=== PATIENT | female | born 1995 | race Two or more races ===

== ENCOUNTER → 2017-08-15 | Emergency (ER) | payer OTHER ==
[~2017-08-15] VITALS: Ht 167.6 cm; Wt 86.2 kg
[~2017-08-15] MED LIST: FOLIC ACID0.4 MG; PRENATAL1 TAB; PROMETRIUM200 MG
== END | disposition home or self-care (01) ==
LOC: ER 16:59
DX: O20.0 Threatened abortion (principal); Z34.81 Encounter for supervision of other normal pregnancy, first trimester

== ENCOUNTER 2017-09-10 22:26 | Emergency (ER) | payer OTHER ==
[~2017-09-10] VITALS: Ht 170.2 cm; Wt 90.7 kg
[2017-09-11] MEDS ORDERED: ZITHROMAX500 MG PO (04:08)
== END 2017-09-11 04:21 | disposition home or self-care (01) ==
LOC: ER 22:26
DX: O26.891 Other specified pregnancy related conditions, first trimester (principal); J03.90 Acute tonsillitis, unspecified; K29.70 Gastritis, unspecified, without bleeding; Z34.01 Encounter for supervision of normal first pregnancy, first trimester

== ENCOUNTER 2021-01-21 15:46 | Emergency (ER) | payer OTHER ==
[~2021-01-21] VITALS: Ht 167.6 cm; Wt 81.6 kg
[~2021-01-21 15:46] MED LIST changes: +PRENATAL TABLE1 EAC1 PO; +ZITHROMAX500 MG PO
== END 2021-01-21 18:36 | disposition home or self-care (01) ==
LOC: ER 15:46
DX: N61.0 Mastitis without abscess (principal)

== ENCOUNTER 2021-02-01 15:22 | Emergency (ER) | payer OTHER ==
[~2021-02-01] VITALS: Ht 167.6 cm; Wt 81.6 kg
== END 2021-02-01 17:09 | disposition home or self-care (01) ==
LOC: ER 15:22
DX: L08.89 Other specified local infections of the skin and subcutaneous tissue (principal)